=== PATIENT | female | born 1975 | race Hispanic/Latino ===

== ENCOUNTER → 2019-07-19 | Outpatient (CLI) | payer OTHER | END | disposition home or self-care (01) | LOC: OIH 08:01 | PROVIDERS: ATTEND Family Medicine | DX: R94.2 Abnormal results of pulmonary function studies (principal) | CPT/HCPCS: 71046 ==

== ENCOUNTER → 2019-10-04 | Outpatient (CLI) | payer OTHER | END | disposition home or self-care (01) | LOC: OIH 07:54 | PROVIDERS: ATTEND Internal Medicine | DX: R07.9 Chest pain, unspecified (principal) | CPT/HCPCS: 71046 ==

== ENCOUNTER → 2020-09-26 | Outpatient (CLI) | payer OTHER | END | disposition home or self-care (01) | LOC: RAH 11:42 | PROVIDERS: ATTEND Family Medicine | DX: R22.2 Localized swelling, mass and lump, trunk (principal) | CPT/HCPCS: 76604 ==

== ENCOUNTER 2020-12-07 07:04 | Day surgery (SDC) | payer OTHER, SELFPAY ==
[2020-12-03 14:30] VITALS: BP 112/64
[2020-12-03 14:54] LABS: BASOPHILS % (AUTO) 0.2 % (0.0-5.0); EOSINOPHILS % (AUTO) 2.3 % (0.0-8.0); HEMATOCRIT 39.4 % (36-48); MEAN CORPUSCULAR HEMOGLOBIN 31.5 pg (27.0-33.0); MEAN CORPUSCULAR VOLUME 95.4 fL (79-99); MONOCYTES % (AUTO) 5.7 % (3.0-13.0); NEUTROPHILS % (AUTO) 60.6 % (40.0-77.0); PLATELET COUNT (AUTO) 193 K/uL (130-400); RED BLOOD CELL COUNT(AUTO) 4.13 MIL/uL (4.00-5.50); RED CELL DISTRIBUTION WIDTH 11.7 % (11.0-15.5); WHITE BLOOD COUNT (AUTO) 5.3 K/uL (4.8-10.8)
[2020-12-03 15:09] LABS: CREATININE 0.7 mg/dL (0.5-1.5); POTASSIUM 3.5 mmol/L (3.5-5.1)
[2020-12-07] VITALS (13 sets, daily range): BP systolic 112–134; BP diastolic 58–82
[~2020-12-07] VITALS: Ht 165.1 cm; Wt 71.3 kg
[~2020-12-07 07:04] MED LIST: ASCO500C18 PO; FLUT1AER IH; FOLI0.8C PO; MIDO5TAB4 PO
[2020-12-07] MEDS ORDERED: LACTATED RINGERS 1000ML 1,000 ML IV ONE (07:39)
[2020-12-07] MEDS ORDERED: 0.9%NACL 1000ML 1,000 ML IV SCH (08:00)
[2020-12-07] MEDS: CEFAZOLIN SODIUM 1 GM VIAL IVP ONE ×2 (08:49→10:00)
[2020-12-07] MEDS ORDERED: MIDAZOLAM HCL 1 MG/ML 2ML VIAL ONE (09:02)
[2020-12-07] MEDS ORDERED: PROPOFOL 10 MG/ML 20ML VIAL IV ONE (09:02)
[2020-12-07] MEDS ORDERED: FENTANYL CITRATE PF 50 MCG/1 ML 2ML VIAL ONE (09:02)
[2020-12-07] MEDS ORDERED: LIDOCAINE PF 100MG/5ML (2%) SYRINGE 5ML ONE (09:02)
[2020-12-07] MEDS ORDERED: SUCCINYLCHOLINE 200MG/10ML SYR ONE (09:02)
[2020-12-07] MEDS ORDERED: ONDANSETRON 4MG INJ ONE (09:04)
[2020-12-07] MEDS ORDERED: EPHEDRINE SULFATE 50 MG/ML AMPULE ONE (09:59)
[2020-12-07] MEDS ORDERED: ROCURONIUM 10MG/1ML SYR 10 MG/ML ML ONE (10:00)
[2020-12-07] MEDS ORDERED: BUPIVACAINE/PF 0.25% 30ML VIAL IJ ONE (10:23)
== END 2020-12-07 12:25 | disposition home or self-care (01) ==
LOC: DAH 07:04
PROVIDERS: ATTEND Surgery
DX: D17.1 Benign lipomatous neoplasm of skin and subcutaneous tissue of trunk (principal); Z20.822 Contact with and (suspected) exposure to COVID-19; J45.909 Unspecified asthma, uncomplicated; Z90.710 Acquired absence of both cervix and uterus; Z83.3 Family history of diabetes mellitus; Z82.49 Family history of ischemic heart disease and other diseases of the circulatory system
CPT/HCPCS: 21932; 36415; 80048; 85025; 87635; A4215; A4221; A4222; A4223; A4452; A4600; A6260; C9803; J0330; J0690; J2001; J2250; J2405; J2704; J3010; J3490 ×2; J7120